=== PATIENT | male | born 1950 | race Caucasian/White ===

== ENCOUNTER → 2016-07-27 | Day surgery (SDC) | payer OTHER ==
[~2016-07-27] MED LIST: CEROVITE SENIO1 EACH PO; CITALOPRAM HBR40 MG PO; FLORANEX TABLE1 EACH PO; FLOVENT 110.088 GM/I INH; FUROSEMIDE40 MG PO; HALOPERIDOL5 MG PO; LIPITOR TAB 2020 MG PO; PANTOPRAZOLE SO40 MG PO; RISPERDAL1 MG PO; SPIRIVA18 MCG INH; VENTOLIN HFA 66.7 GM INH
== END | disposition home or self-care (01) ==
LOC: OR 07:18
PROVIDERS: Internal Medicine Gastroenterology
PROC: 0DBE8ZX Excision of Large Intestine, Via Natural or Artificial Opening Endoscopic, Diagnostic (ICD-10-PCS; 2016-07-27)
PROC: 0DB68ZX Excision of Stomach, Via Natural or Artificial Opening Endoscopic, Diagnostic (ICD-10-PCS; principal; 2016-07-27 13:15)
PROC: 0DBP8ZZ Excision of Rectum, Via Natural or Artificial Opening Endoscopic (ICD-10-PCS; 2016-07-27 13:15)
DX: K62.1 Rectal polyp (principal); K63.89 Other specified diseases of intestine; K44.9 Diaphragmatic hernia without obstruction or gangrene; K64.0 First degree hemorrhoids; J44.9 Chronic obstructive pulmonary disease, unspecified; G43.909 Migraine, unspecified, not intractable, without status migrainosus; F41.9 Anxiety disorder, unspecified; F32.9 Major depressive disorder, single episode, unspecified; F17.200 Nicotine dependence, unspecified, uncomplicated; Z87.01 Personal history of pneumonia (recurrent); Z88.8 Allergy status to other drugs, medicaments and biological substances; Z79.899 Other long term (current) drug therapy
CPT/HCPCS: 82962; J7030

== ENCOUNTER 2021-05-27 16:09 | Inpatient (IN) | payer MEDICARE, OTHER ==
[~2021-05-27] VITALS: Ht 172.7 cm; Wt 106.0 kg
[~2021-05-27 16:09] MED LIST changes: +LIPITOR TAB 1010 MG PO; -LIPITOR TAB 2020 MG PO; +RISPERDAL4 MG PO
[2021-05-27 19:33] LABS: HEMOGLOBIN 13.2 gm/dl (14.0-17.5); RED BLOOD COUNT 4.37 M/UL (4.20-5.50); WHITE BLOOD COUNT 5.2 K/UL (4.5-11.0)
[2021-05-27 20:07] LABS: BUN/CREATININE RATIO 21 (0-10)
[2021-05-28 04:43] LABS: HEMOGLOBIN 12.1 gm/dl (14.0-17.5); RED BLOOD COUNT 4.12 M/UL (4.20-5.50)
[2021-05-28 04:52] LABS: WHITE BLOOD COUNT 3.3 K/UL (4.5-11.0)
[2021-05-28 08:25] LABS: BUN/CREATININE RATIO 27 (0-10)
[2021-05-29 05:38] LABS: HEMOGLOBIN 12.8 gm/dl (14.0-17.5); RED BLOOD COUNT 4.3 M/UL (4.20-5.50)
[2021-05-29 05:57] LABS: WHITE BLOOD COUNT 4.9 K/UL (4.5-11.0)
[2021-05-29 06:22] LABS: BUN/CREATININE RATIO 26 (0-10)
[2021-05-29] MEDS ORDERED: SYMBICORT 16010.2 GM INH (09:13)
[2021-05-29] MEDS ORDERED: FLOMAX 0.4 MG0.4 MG PO (09:14)
[2021-05-29] MEDS ORDERED: FLONASE 0.05% N16 GM (09:14)
[2021-05-29] MEDS ORDERED: DEXAMETHASONE4 MG PO (09:14)
[2021-05-29] MEDS ORDERED: MYRBETRIQ25 MG PO (09:15)
[2021-05-29] MEDS ORDERED: CETIRIZINE HCL10 MG PO (09:15)
[2021-05-29] MEDS ORDERED: FINASTERIDE5 MG PO (09:15)
[2021-05-29] MEDS ORDERED: VISTARIL50 MG PO (09:15)
[2021-05-29] MEDS ORDERED: ROPINIROLE HCL2 MG PO (09:16)
[2021-05-29] MEDS ORDERED: ASCORBIC ACID500 MG PO (09:16)
[2021-05-29] MEDS ORDERED: MELATONIN10 M2 PO (09:17)
[2021-05-30 05:20] LABS: HEMOGLOBIN 13.1 gm/dl (14.0-17.5); RED BLOOD COUNT 4.45 M/UL (4.20-5.50)
[2021-05-30 05:27] LABS: WHITE BLOOD COUNT 8.1 K/UL (4.5-11.0)
[2021-05-30 06:39] LABS: BUN/CREATININE RATIO 33 (0-10)
[2021-05-31 05:07] LABS: HEMOGLOBIN 12.6 gm/dl (14.0-17.5); RED BLOOD COUNT 4.25 M/UL (4.20-5.50); WHITE BLOOD COUNT 7.9 K/UL (4.5-11.0)
[2021-05-31 05:37] LABS: BUN/CREATININE RATIO 30 (0-10)
[2021-06-01 05:30] LABS: HEMOGLOBIN 12.8 gm/dl (14.0-17.5); RED BLOOD COUNT 4.33 M/UL (4.20-5.50)
[2021-06-01 05:31] LABS: WHITE BLOOD COUNT 10.7 K/UL (4.5-11.0)
[2021-06-01 05:52] LABS: BUN/CREATININE RATIO 24 (0-10)
[2021-06-02 05:42] LABS: HEMOGLOBIN 12.8 gm/dl (14.0-17.5); RED BLOOD COUNT 4.29 M/UL (4.20-5.50); WHITE BLOOD COUNT 11.8 K/UL (4.5-11.0)
[2021-06-02 06:10] LABS: BUN/CREATININE RATIO 28 (0-10)
[2021-06-03 06:00] LABS: RED BLOOD COUNT 4.39 M/UL (4.20-5.50); WHITE BLOOD COUNT 9.9 K/UL (4.5-11.0)
[2021-06-03 06:22] LABS: BUN/CREATININE RATIO 39 (0-10)
[2021-06-04 05:55] LABS: HEMOGLOBIN 13.8 gm/dl (14.0-17.5); RED BLOOD COUNT 4.76 M/UL (4.20-5.50)
[2021-06-04 06:25] LABS: BUN/CREATININE RATIO 37 (0-10)
[2021-06-05 06:10] LABS: HEMOGLOBIN 13.9 gm/dl (14.0-17.5); RED BLOOD COUNT 4.75 M/UL (4.20-5.50); WHITE BLOOD COUNT 11.7 K/UL (4.5-11.0)
[2021-06-05 06:45] LABS: BUN/CREATININE RATIO 42 (0-10)
[2021-06-06 06:47] LABS: HEMOGLOBIN 14.4 gm/dl (14.0-17.5); RED BLOOD COUNT 4.81 M/UL (4.20-5.50); WHITE BLOOD COUNT 10.4 K/UL (4.5-11.0)
[2021-06-06 07:05] LABS: BUN/CREATININE RATIO 50 (0-10)
[2021-06-07 05:47] LABS: HEMOGLOBIN 15.3 gm/dl (14.0-17.5); RED BLOOD COUNT 5.11 M/UL (4.20-5.50)
[2021-06-07 05:48] LABS: WHITE BLOOD COUNT 14.9 K/UL (4.5-11.0)
[2021-06-07 05:59] LABS: BUN/CREATININE RATIO 44 (0-10)
[2021-06-08 05:33] LABS: HEMOGLOBIN 13.8 gm/dl (14.0-17.5); RED BLOOD COUNT 4.63 M/UL (4.20-5.50); WHITE BLOOD COUNT 18.2 K/UL (4.5-11.0)
[2021-06-08 05:53] LABS: BUN/CREATININE RATIO 53 (0-10)
[2021-06-09 05:47] LABS: HEMOGLOBIN 12.3 gm/dl (14.0-17.5); WHITE BLOOD COUNT 15.6 K/UL (4.5-11.0)
[2021-06-09 05:55] LABS: RED BLOOD COUNT 4.06 M/UL (4.20-5.50)
[2021-06-09 05:58] LABS: BUN/CREATININE RATIO 40 (0-10)
[2021-06-10 05:09] LABS: HEMOGLOBIN 11.9 gm/dl (14.0-17.5); RED BLOOD COUNT 4.01 M/UL (4.20-5.50); WHITE BLOOD COUNT 15.3 K/UL (4.5-11.0)
[2021-06-10 05:32] LABS: BUN/CREATININE RATIO 53 (0-10)
[2021-06-11 06:12] LABS: HEMOGLOBIN 11.8 gm/dl (14.0-17.5); RED BLOOD COUNT 3.9 M/UL (4.20-5.50)
[2021-06-11 06:49] LABS: BUN/CREATININE RATIO 74 (0-10)
[2021-06-12 04:09] LABS: HEMOGLOBIN 11.3 gm/dl (14.0-17.5); RED BLOOD COUNT 3.66 M/UL (4.20-5.50); WHITE BLOOD COUNT 14.7 K/UL (4.5-11.0)
[2021-06-12 04:32] LABS: BUN/CREATININE RATIO 83 (0-10)
[2021-06-13 05:19] LABS: HEMOGLOBIN 11.1 gm/dl (14.0-17.5); RED BLOOD COUNT 3.63 M/UL (4.20-5.50); WHITE BLOOD COUNT 17.3 K/UL (4.5-11.0)
[2021-06-13 05:49] LABS: BUN/CREATININE RATIO 80 (0-10)
[2021-06-14 04:43] LABS: HEMOGLOBIN 10.1 gm/dl (14.0-17.5)
[2021-06-14 04:45] LABS: RED BLOOD COUNT 3.21 M/UL (4.20-5.50)
[2021-06-14 11:09] LABS: BUN/CREATININE RATIO 80 (0-10)
[2021-06-15 05:24] LABS: HEMOGLOBIN 8.9 gm/dl (14.0-17.5); RED BLOOD COUNT 2.92 M/UL (4.20-5.50)
[2021-06-15 05:39] LABS: BUN/CREATININE RATIO 84 (0-10)
[2021-06-15 05:42] LABS: WHITE BLOOD COUNT 10.5 K/UL (4.5-11.0)
[2021-06-16 05:36] LABS: HEMOGLOBIN 8.8 gm/dl (14.0-17.5); RED BLOOD COUNT 3.01 M/UL (4.20-5.50); WHITE BLOOD COUNT 11.3 K/UL (4.5-11.0)
[2021-06-16 06:20] LABS: BUN/CREATININE RATIO 74 (0-10)
[2021-06-17 05:36] LABS: HEMOGLOBIN 8.6 gm/dl (14.0-17.5); RED BLOOD COUNT 2.93 M/UL (4.20-5.50); WHITE BLOOD COUNT 9.3 K/UL (4.5-11.0)
[2021-06-17 06:02] LABS: BUN/CREATININE RATIO 83 (0-10)
[2021-06-18 05:29] LABS: HEMOGLOBIN 8.5 gm/dl (14.0-17.5); RED BLOOD COUNT 2.84 M/UL (4.20-5.50); WHITE BLOOD COUNT 7.1 K/UL (4.5-11.0)
[2021-06-18 06:30] LABS: BUN/CREATININE RATIO 79 (0-10)
[2021-06-19 09:21] LABS: HEMOGLOBIN 8.4 gm/dl (14.0-17.5); RED BLOOD COUNT 2.76 M/UL (4.20-5.50); WHITE BLOOD COUNT 7.8 K/UL (4.5-11.0)
[2021-06-19 09:50] LABS: BUN/CREATININE RATIO 108 (0-10)
== END 2021-06-21 09:00 | disposition expired | DRG 870 ==
LOC: ER1 16:09 → PROG CARE 23:07 → CDU 23:07 → CCU 23:07 → PROG CARE 05-28 00:49 → CCU 05-28 12:33
PROVIDERS: Emergency Medicine; Internal Medicine; Internal Medicine Critical Care Medicine; Internal Medicine Pulmonary Disease; ADMIT Internal Medicine
PROC: 8E0ZXY6 Isolation (ICD-10-PCS; principal; 2021-05-28)
PROC: XW033E5 Introduction of Remdesivir Anti-infective into Peripheral Vein, Percutaneous Approach, New Technology Group 5 (ICD-10-PCS; 2021-05-28)
PROC: 3E0333Z Introduction of Anti-inflammatory into Peripheral Vein, Percutaneous Approach (ICD-10-PCS; 2021-05-28)
PROC: XW033H5 Introduction of Tocilizumab into Peripheral Vein, Percutaneous Approach, New Technology Group 5 (ICD-10-PCS; 2021-05-28)
PROC: 5A09457 Assistance with Respiratory Ventilation, 24-96 Consecutive Hours, Continuous Positive Airway Pressure (ICD-10-PCS; 2021-05-28)
PROC: 5A0945A Assistance with Respiratory Ventilation, 24-96 Consecutive Hours, High Flow/Velocity Cannula (ICD-10-PCS; 2021-05-30)
PROC: 5A09557 Assistance with Respiratory Ventilation, Greater than 96 Consecutive Hours, Continuous Positive Airway Pressure (ICD-10-PCS; 2021-06-02)
PROC: B24BZZZ Ultrasonography of Heart with Aorta (ICD-10-PCS; 2021-06-03)
PROC: 5A1955Z Respiratory Ventilation, Greater than 96 Consecutive Hours (ICD-10-PCS; 2021-06-07)
PROC: 3E033XZ Introduction of Vasopressor into Peripheral Vein, Percutaneous Approach (ICD-10-PCS; 2021-06-07)
PROC: 0BH18EZ Insertion of Endotracheal Airway into Trachea, Via Natural or Artificial Opening Endoscopic (ICD-10-PCS; 2021-06-07)
PROC: 05HN33Z Insertion of Infusion Device into Left Internal Jugular Vein, Percutaneous Approach (ICD-10-PCS; 2021-06-07)
PROC: B544ZZA Ultrasonography of Left Jugular Veins, Guidance (ICD-10-PCS; 2021-06-07)
PROC: 03HY32Z Insertion of Monitoring Device into Upper Artery, Percutaneous Approach (ICD-10-PCS; 2021-06-12)
PROC: 4A133B1 Monitoring of Arterial Pressure, Peripheral, Percutaneous Approach (ICD-10-PCS; 2021-06-12)
PROC: 4A133J1 Monitoring of Arterial Pulse, Peripheral, Percutaneous Approach (ICD-10-PCS; 2021-06-12)
PROC: 0B21XEZ Change Endotracheal Airway in Trachea, External Approach (ICD-10-PCS; 2021-06-19)
DX: A41.89 Other specified sepsis (principal); U07.1 COVID-19; J80 Acute respiratory distress syndrome; J15.9 Unspecified bacterial pneumonia; G93.41 Metabolic encephalopathy; R65.21 Severe sepsis with septic shock; J12.82 Pneumonia due to coronavirus disease 2019; J44.0 Chronic obstructive pulmonary disease with (acute) lower respiratory infection; I48.20 Chronic atrial fibrillation, unspecified; M62.82 Rhabdomyolysis; Z99.11 Dependence on respirator [ventilator] status; Z66 Do not resuscitate; E66.01 Morbid (severe) obesity due to excess calories; G31.84 Mild cognitive impairment of uncertain or unknown etiology; G47.00 Insomnia, unspecified; F79 Unspecified intellectual disabilities; N40.0 Benign prostatic hyperplasia without lower urinary tract symptoms; R74.01 Elevation of levels of liver transaminase levels; F32.A Depression, unspecified; F17.210 Nicotine dependence, cigarettes, uncomplicated; H57.10 Ocular pain, unspecified eye; R73.9 Hyperglycemia, unspecified; E87.5 Hyperkalemia; K59.00 Constipation, unspecified; T38.0X5A Adverse effect of glucocorticoids and synthetic analogues, initial encounter; R45.1 Restlessness and agitation; Z88.8 Allergy status to other drugs, medicaments and biological substances; Z68.35 Body mass index [BMI] 35.0-35.9, adult; Z79.4 Long term (current) use of insulin; Z23 Encounter for immunization; Z51.5 Encounter for palliative care
CPT/HCPCS: ECHO; 0240U; 31500; 36415; 36600; 71045; 74018; 80048; 80053; 82550; 82553; 82728; 82800; 82803; 82810; 82962; 83615; 83735; 83880; 84100; 84132; 84478; 84484; 85025; 85027; 85379; 85384; 85610; 86140; 87040; 87070; 87077; 87081; 87186; 87205; 93005; 93306; 94003; 94640; 94660; 94760; 96374; 99285; C9113; G0378; J0248; J0330; J0692; J1100; J1120; J1205; J1650; J1940; J1956; J2020; J2060; J2185; J2248; J2270; J2370; J2704; J2765; J3010; J3475; J3486; J7030; J7050; Q9967